=== PATIENT | female | born 1950 | race Caucasian/White ===

== ENCOUNTER → 2018-06-21 10:39 | Outpatient (REF) | payer MEDICARE, BC, SELFPAY ==
[2018-06-21 12:19] LABS: Hemoglobin A1C 5.9 % (4.5-6.2)
[2018-06-21 12:22] LABS: ALT 121 U/L (12-78); AST 77 U/L (15-37); Albumin 3.7 g/dL (3.4-5.0); Alkaline Phosphatase 81 U/L (46-116); Anion Gap 8.2 mmol/L (3-11); BUN 16 mg/dL (7-18); Bilirubin, Total 0.6 mg/dL (0.2-1.0); CO2 28.8 mmol/L (21.0-32.0); CREATININE 1.16 mg/dL (0.55-1.02); Calcium 9.5 mg/dL (8.5-10.1); Chloride 102 mmol/L (98-107); Cholesterol 190 mg/dL (50-200); Estimated GFR 46.32 (mL/min/1.73m2); Glucose 134 mg/dL (70-100); HDL Cholesterol 74 mg/dL (40-60); LDL CHOLESTEROL 102 mg/dL (<100); Potassium 3.6 mmol/L (3.5-5.1); Sodium 139 mmol/L (136-145); Total Protein 7.2 g/dL (6.4-8.2); Triglyceride 70 mg/dL (30-150)
== END ==
LOC: NCHCN 10:39
PROVIDERS: Visit Provider Family Medicine
DX: I10 Essential (primary) hypertension (principal); R74.0 Nonspecific elevation of levels of transaminase and lactic acid dehydrogenase [LDH]; R73.09 Other abnormal glucose; K76.0 Fatty (change of) liver, not elsewhere classified
CPT/HCPCS: 80053; 80061; 83721; 83036

== ENCOUNTER 2020-09-11 08:31 | Outpatient (REF) | payer MEDICARE, BC, SELFPAY ==
[2020-09-11 20:41] LABS: HCT 47.9 % (36.0-46.0); HGB 16.4 g/dL (11.2-15.7); MCHC 34.2 % (32.0-36.0); MCV 99.2 fL (80-95); MPV 11.5 fL (8.0-11.0); Platelet Count 217 10^3/uL (130-400); RBC 4.83 10^6/uL (3.93-5.22); RDW 11.3 % (11.7-14.6); RDW-SD 41.3 fL; WBC 8.17 10^3/uL (4.4-10.8)
[2020-09-11 21:10] LABS: ALT 134 U/L (14-59); AST 110 U/L (15-37); Albumin 3.6 g/dL (3.4-5.0); Alkaline Phosphatase 75 U/L (46-116); Anion Gap 7.8 mmol/L (3-11); BUN 16 mg/dL (7-18); CO2 29.2 mmol/L (21.0-32.0); CREATININE 1.13 mg/dL (0.55-1.02); Calculated LDL 96 mg/dL (<100); Chloride 102 mmol/L (98-107); Cholesterol 201 mg/dL (<200); Estimated GFR 47.47 (mL/min/1.73m2); Glucose 124 mg/dL (74-106); HDL Cholesterol 87 mg/dL (40-60); Potassium 3.8 mmol/L (3.5-5.1); Sodium 139 mmol/L (136-145); Triglyceride 91 mg/dL (<150)
== END 2020-09-11 08:51 ==
LOC: NCHCN 08:31
PROVIDERS: PCP Family Medicine; Visit Provider Family Medicine
DX: Z00.00 Encounter for general adult medical examination without abnormal findings (principal); I10 Essential (primary) hypertension; E66.9 Obesity, unspecified
CPT/HCPCS: 80053; 80061; 85027

== ENCOUNTER 2021-07-05 18:53 | Outpatient (REF) | payer MEDICARE, BC, SELFPAY ==
[2021-07-05 15:49] LABS: ALT 103 U/L (14-59); AST 70 U/L (15-37); Albumin 3.6 g/dL (3.4-5.0); Alkaline Phosphatase 81 U/L (46-116); BUN 12 mg/dL (7-18); Bilirubin, Total 0.7 mg/dL (0.2-1.0); Calcium 9.1 mg/dL (8.5-10.1); Calculated LDL 108 mg/dL (<100); Chloride 102 mmol/L (98-107); Cholesterol 200 mg/dL (<200); Glucose 128 mg/dL (74-106); HDL Cholesterol 76 mg/dL (40-60); Potassium 4.1 mmol/L (3.5-5.1); Sodium 141 mmol/L (136-145); Total Protein 6.8 g/dL (6.4-8.2); Triglyceride 81 mg/dL (<150)
[2021-07-05 16:10] LABS: Vitamin D 25 Total 58.4 ng/mL (30-100)
== END 2021-07-05 18:54 | disposition home or self-care (01) ==
LOC: NCHCN 18:53
PROVIDERS: PCP Family Medicine; Visit Provider Family Medicine
DX: E55.9 Vitamin D deficiency, unspecified (principal); K76.0 Fatty (change of) liver, not elsewhere classified; R74.01 Elevation of levels of liver transaminase levels; I10 Essential (primary) hypertension
CPT/HCPCS: 80053; 80061; 82306

== ENCOUNTER 2023-03-16 17:56 | Outpatient (REF) | payer MEDICARE, BC, SELFPAY ==
[2023-03-16 16:39] LABS: HCT 46.2 % (36.0-46.0); HGB 15.6 g/dL (11.2-15.7); MCH 32.5 pg (27.0-33.0); MCHC 33.8 % (32.0-36.0); MCV 96 fL (80-95); MPV 11.2 fL (8.0-11.0); Platelet Count 244 10^3/uL (130-400); RDW 11.3 % (11.7-14.6)
[2023-03-16 16:57] LABS: ALT 53 U/L (14-59); AST 35 U/L (15-37); Albumin 3.7 g/dL (3.4-5.0); Alkaline Phosphatase 81 U/L (46-116); Anion Gap 7.7 mmol/L (3-11); BUN 11 mg/dL (7-18); Bilirubin, Total 0.6 mg/dL (0.2-1.0); CO2 30.3 mmol/L (21.0-32.0); Chloride 104 mmol/L (98-107); Estimated GFR 59.49 (mL/min/1.73m2); Glucose 92 mg/dL (74-106); Potassium 4.4 mmol/L (3.5-5.1); Sodium 142 mmol/L (136-145); Total Protein 7.1 g/dL (6.4-8.2)
[2023-03-16 18:16] LABS: Hemoglobin A1C 5.7 % (<5.7)
== END 2023-03-16 17:57 | disposition home or self-care (01) ==
LOC: NCHCN 17:56
PROVIDERS: PCP Family Medicine; Visit Provider Family Medicine
DX: I10 Essential (primary) hypertension (principal); K76.0 Fatty (change of) liver, not elsewhere classified; R73.09 Other abnormal glucose
CPT/HCPCS: 80053; 85027; 83036